=== PATIENT | female | born 1990 | race African-American/Black ===

== ENCOUNTER 2017-03-01 05:48 | Emergency (ER) | payer OTHER ==
--- NOTE | ~2017-03-01 | CT16 ---
[facility] A Service of [facility] & [facility] RADIOLOGY TEXT RESULTS PATIENT: DAVIS VELÁSQUEZ LOCATION: [facility] : [birth year] UNIT #: [id number] AGE: [address]: Jenny Zamarripa MD SEX: F ORDER DR: [id number] [facility] [address] [place], [place] [address] [id number] E MR#: [id number] Acc #: [id number] NAME: DAVIS VELÁSQUEZ : 1990 SEX: F STUDY DATE/TIME: 03/01/2017 8:44 UNIT: [facility] ROOM: STUDY DESCRIPTION: CT Angio Chest for PE Attending Physician: Jenny Zamarripa M.D. Ordering Physician: Jenny Zamarripa M.D. Primary Care Physician: No Primary Care Physician MEDICAL IMAGING REPORT This report is preliminary unless electronic signature is present EXAM Chest CT for PE protocol, CT angiogram. HISTORY Right-sided back, chest pain, pleuritic started yesterday about 6 p.m. and has continued until now. The patient is a smoker of 1/2 pack per day. History of MRSA, anxiety and thalassemia trait. No cancer history. COMMENT CT of the chest performed in the axial plane during the intravenous administration of 100 mL of Isovue-370 using a pulmonary angiogram protocol. This is followed by 3-D coronal MIP reconstructed images. This CT exam was performed with one or more of the following radiation dose reduction techniques: automatic exposure control, adjustment of mA and/or kV according to patient size, and iterative reconstruction. There is a previous chest x-ray from 05/30/2013. There is no evidence for pulmonary embolism. There is no pericardial effusion or pleural effusion. There is no pneumothorax. Minimal dependent atelectasis. The lungs are otherwise clear. No axillary, hilar, or mediastinal lymphadenopathy. No thoracic aortic dissection. IMPRESSION 1. No evidence for pulmonary embolus. 2. No pleural effusion or pericardial effusion, thoracic aortic dissection or pneumothorax. Only minimal dependent atelectasis. No acute-appearing parenchymal infiltrate. Dictated by... Sherry Aguilar M.D. THIS IS AN ELECTRONICALLY VERIFIED REPORT [facility]. [facility] A Service of [facility] & [facility] RADIOLOGY TEXT RESULTS PATIENT: DAVIS VELÁSQUEZ LOCATION: [facility] : [birth year] UNIT #: [id number] AGE: [address]: Jenny Zamarripa MD SEX: F ORDER DR: Sherry Aguilar M.D. at 03/01/2017 4:17 PM CHACHA/[place] TD: 03/01/2017 15:15 JOB #: [id number] MEDICAL IMAGING REPORT Page 1 of 1 COPY
[~2017-03-01 05:48] MED LIST: ALBUTEROL17 G1 IH; ALBUTEROL17 GM INH; AUGMENTIN PO; BACITRACIN28.4 G1 TP; BENTYL10 MG DOB; BENTYL10 MG PO; BENZONATATE PO; COLACE PO; CYMBALTA PO; DICLOFENAC PO; DICLOFENAC SODI25 MG PO; DIFLUCAN PO; DULCOLAX5 MG PO; FLEXERIL10 MG PO; IBUPROFEN800 MG PO; INDOCIN SR75 MG PO; INDOCIN25 MG/5 ML PO; LORTAB 5/500 TA1 TA1 PO; MEDROL DOSEPAK4 MG DOB; MEDROL4 MG PO; MOTRIN600 MG PO; NAPROSYN375 MG PO; NAPROSYN500 MG PO; NAPROXEN PO; NORCO 5/325 TAB1 TAB PO; ORUDIS75 M1 PO; PREDNISONE PO; PYRIDIUM100 MG PO; VAGINAL CREAM; XANAX0.5 MG PO; ZOFRAN PO; ZOFRAN2 MG/M1 PO
[2017-03-01 06:58] LABS: BASOPHIL# 0.1 X10e3 (0-0.3); DIFF IND YES; EOSINOPHIL# 0.2 X10e3 (0-0.7); EOSINOPHIL% 3.1 % (0.0-7.0); HEMATOCRIT 31.3 % (35.0-45.0); HEMOGLOBIN 9.5 gm/dL (12.0-16.0); LYMPHOCYTE# 1.2 X10e3 (1.0-3.5); MEAN CELL VOLUME 62.1 FL (83-96); MEAN CORPUSCULAR HEMOGLOBIN 18.9 PG (28-34); MEAN CORPUSCULAR HGB CONC 30.4 g/dL (30-36); MEAN PLATELET VOLUME 8.6 FL (6.5-11.5); MONOCYTE# 0.8 X10e3 (0-1.0); MONOCYTE% 12.2 % (3.0-12.0); NEUTROPHIL# 4.3 X10e3 (1.5-7.1); NEUTROPHIL% 65.7 % (40-75); PLATELET COUNT 316 X10e3 (140-420); RED BLOOD COUNT 5.04 X10e (3.90-5.30); WHITE BLOOD COUNT 6.6 X10e3 (4.0-10.5)
[2017-03-01 07:11] LABS: INR 1.1; PARTIAL THROMBOPLASTIN TIME 25.5 SECONDS (23.5-31.3)
[2017-03-01 07:27] LABS: HYPOCHROMIA MOD; PLATELET ESTIMATE NORMAL (NORMAL)
[2017-03-01 07:28] LABS: ANISOCYTOSIS SL
[2017-03-01 07:39] LABS: ALBUMIN SERUM 3.9 g/dL (3.5-5.0); ALKALINE PHOSPHATASE 64 U/L (32-92); ALT (SGPT) 15 U/L (10-40); AST (SGOT) 19 U/L (10-42); BILIRUBIN, DIRECT 0.1 mg/dL (0.0-0.2); BILIRUBIN,INDIRECT 0.4 mg/dL (0.0-0.9); BILIRUBIN,TOTAL 0.5 mg/dL (0.2-2.0); BLOOD UREA NITROGEN 9 mg/dL (9-23); CALCIUM SERUM 9.1 mg/dL (8.4-10.2); CARBON DIOXIDE 22 mmol/L (22-31); CHLORIDE 108 mmol/L (100-111); CREATININE SERUM 0.5 mg/dL (0.6-1.4); GLOM FILT RATE Estimated 152.7 mL/min (>60); GLUCOSE FASTING 91 mg/dL (70-110); POTASSIUM 3.9 mmol/L (3.5-5.1); PROTEIN TOTAL SERUM 7.5 g/dL (6.0-8.3); SODIUM 138 mmol/L (135-145)
[2017-03-01 07:40] LABS: ALCOHOL BLOOD <5 mg/dL ([, 0])
== END 2017-03-01 10:04 | disposition home or self-care (01) ==
LOC: CED 05:48
PROVIDERS: Student in an Organized Health Care Education/Training Program
DX: R09.1 Pleurisy (principal); J45.909 Unspecified asthma, uncomplicated; Z98.51 Tubal ligation status
CPT/HCPCS: 36415; 71275; 80048; 80076; 84703; 85025; 85379; 85610; 85730; 96361; 96374; 96375; 99284; G0480; J2270; J3360; Q9967